=== PATIENT | female | born 1980 | race American Indian/Alaskan Native ===

== ENCOUNTER 2018-12-12 14:59 | Emergency (ER) | payer MEDICAID ==
--- NOTE | 2018-12-12 15:28 | Emergency Department Report ---
Blank Doc - Documentation Documentation: 38 y o female with right eye pain and swelling x 4 days states she uses lashes to her eye brows hx of thyroid do sstates he has not been able to get her medication due to no insurance, wanting her thyroid hormonr checked no other cc [facility] eval
[2018-12-12 17:33] LABS: Free T4 (Free Thyroxine) 1.29 ng/dL (0.76-1.46)
--- NOTE | 2018-12-12 19:16 | Emergency Department Report ---
Eye Injury/Foreign Body - HPI Duration: 3 Days Severity: Mild Tetanus Status: Up to Date Eye Symptoms: Eye Pain: No, Blurred Vision: No, Eye Redness: Yes, Grinding/Hammering Metal: No, Used Eye Protection: No, Contact Lens Use: No, Recalls Injury: No, Photophobia: No Other History: Pt is a 38-year-old female comes to the ER today complaining of right eye drainage this morning. It's associated with itching. And she states it is mildly swollen. She also is requesting that her thyroid studies be checked because she's been office 6 months. Patient is on no home medications at the current time. She is taking nothing at home to make her eye feel better. She does not have a primary care doctor. ED Review of Systems ROS: Stated complaint: EYE SWOLLEN/RED Other details as noted in HPI Comment: All other systems reviewed and negative ED Past Medical Hx - Past Medical History Previous Medical History?: Yes Additional medical history: Hypothyroid - Surgical History Past Surgical History?: Yes Additional Surgical History: Right pneumothorax - Family History Family history: no significant - Social History Smoking Status: Current Every Day Smoker Substance Use Type: Alcohol, Marijuana - Medications Home Medications: Home Medications Medication Instructions Recorded Confirmed Last Taken Type Tobramycin/Dexamethasone [Tobradex 1 - 2 drop OP Q4HR #1 drops.susp 12/12/18 Unknown Rx Eye Drops 0.3/0.1%] Eye Injury Exam - Exam General: Vital signs noted. No distress. Alert and acting appropriately. perrl eoms intact pink r eye conjunctivitis no cough no sinus tenderness no fever ambulatory taking po non toxic ED Course Vital Signs 12/12/18 15:25 Temperature 97.4 F L Pulse Rate 98 H Respiratory 18 Rate Blood Pressure 148/85 O2 Sat by Pulse 100 Oximetry ED Medical Decision Making - Medical Decision Making simple conjunctivitis no eye pain vision unchanged no trauma no contacts eoms intact Vss non toxic Labs 12/12/18 16:43 TSH 0.482 Free T4 1.29 Vital Signs 12/12/18 15:25 Temperature 97.4 F L Pulse Rate 98 H Respiratory 18 Rate Blood Pressure 148/85 O2 Sat by Pulse 100 Oximetry Critical care attestation.: If time is entered above; I have spent that time in minutes in the direct care of this critically ill patient, excluding procedure time. ED Disposition Clinical Impression: Conjunctivitis, Hypothyroid Disposition: DC-01 TO HOME OR SELFCARE Is pt being admited?: No Does the pt Need Aspirin: No Condition: Stable Instructions: Conjunctivitis (ED) Prescriptions: Tobramycin/Dexamethasone [Tobradex Eye Drops 0.3/0.1%] 1 - 2 drop OP Q4HR #1 drops.susp Referrals: PRIMARY CARE, [Primary Care Provider] - 3-5 Days [facility] [Outside] - 3-5 Days Forms: Work/School Release Form(ED) Time of Disposition: 19:13
[2018-12-12 20:22] VITALS: BP 133/85
== END 2018-12-12 17:40 | disposition home or self-care (01) ==
LOC: ED 14:59
DX: H10.9 Unspecified conjunctivitis (principal); E03.9 Hypothyroidism, unspecified; F17.200 Nicotine dependence, unspecified, uncomplicated; F12.10 Cannabis abuse, uncomplicated
CPT/HCPCS: 36415; 84439; 84443; 99283